=== PATIENT | female | born 1985 | race Caucasian/White ===

== ENCOUNTER 2018-02-21 09:59 | Day surgery (SDC) | payer MEDICAID ==
[2018-02-21 10:54] VITALS: BMI 17.4
[2018-02-21] MEDS ORDERED: Propofol 10 mg/ml Inj (20 ML) ONE (11:13)
[2018-02-21] MEDS ORDERED: Lidocaine Hydrochloride 5 ML INJ ONE (11:13)
[2018-02-21] MEDS ORDERED: Lactated Ringer's 1,000 ML IV ONE (11:15)
[2018-02-21 11:19] VITALS: O2SAT 100
[2018-02-21 13:03] VITALS: BP 101/64; PULSE 76; RESP 16; TEMP 96.7
== END 2018-02-21 13:00 | disposition home or self-care (01) ==
LOC: C.ENDO 09:59
PROVIDERS: ATTEND Internal Medicine
DX: R13.10 Dysphagia, unspecified (principal); R10.13 Epigastric pain; K44.9 Diaphragmatic hernia without obstruction or gangrene; K31.7 Polyp of stomach and duodenum
CPT/HCPCS: 43239; 84703; 88305; 88312; 88313; 88342; J2704; J7120